=== PATIENT | male | born 1940 | race Caucasian/White ===

== ENCOUNTER 2022-02-14 12:45 | Emergency (ER) | payer BC, SELFPAY ==
[2022-02-14 12:50] VITALS: BP 146/88; PULSE 50; RESP 16; TEMP 36.4; O2SAT 99
--- NOTE | 2022-02-14 12:51 | ED.ALLEREA ---
HPI - Allergic Reaction General Chief complaint: Allergic Reaction Stated complaint: Alergic reaction to Valacyclovir Time Seen by Provider: 02/14/22 13:20 Source: patient Mode of arrival: ambulatory Limitations: no limitations History of Present Illness HPI narrative: 81-year-old male presents with concern for possible allergic reaction. Reports he called into his doctor to report white spots he had on the inside of his lip after taking a round of antibiotics. They prescribed him valacyclovir over the phone. He reports he started taking the valacyclovir last night and woke up this morning with itchy rash in his groin and under his arms. He reports later in the morning he noticed hoarse voice and his throat feeling itchy with some salty swallowing. He reports he took a Benadryl with some relief of the difficulty swallowing and itchy throat. He denies any current shortness of breath, swollen lips or swollen tongue, itchy throat. He denies any known history of allergies to valacyclovir MD complaint: allergic reaction Related Data Home Medications Medication Instructions Recorded Confirmed Livalo 4 mg DAILY 02/14/22 02/14/22 aspirin 325 mg PO DAILY 02/14/22 02/14/22 coenzyme Q10 [CoQ-10] 100 mg PO DAILY 02/14/22 02/14/22 glucosamine HCl 1,500 mg PO BID 02/14/22 02/14/22 losartan 50 mg PO BID 02/14/22 02/14/22 omeprazole 40 mg PO QPM 02/14/22 02/14/22 tamsulosin 0.4 mg PO QPM 02/14/22 02/14/22 Allergies Allergy/AdvReac Type Severity Reaction Status Date / Time valacyclovir Allergy Intermediate Rash, Verified 02/14/22 13:39 trouble swallowing rosuvastatin Allergy Unknown Unknown Verified 02/14/22 13:07 simvastatin Allergy Unknown Unknown Verified 02/14/22 13:07 Review of Systems Review of Systems: CONSTITUTIONAL: Denies malaise, chills, sweats, or fever. ENT: Reports itchy throat, trouble swallowing this morning CARDIOVASCULAR: Denies chest pain, palpitations, or edema. RESPIRATORY: Denies cough or dyspnea. GASTROINTESTINAL: Denies abdominal pain, nausea, vomiting, diarrhea SKIN: Reports itchy rash under both arms and in each groin All systems reviewed & are unremarkable except as noted in HPI and below PMFSH Family History Family History (System 12/14/21 @ 09:27 by Jonny Lee) Sibling Patient's sister is in good health Patient's brother is in good health Patient's sister is Father Acute myocardial infarction, Onset Age: 62 Patient's father is Social History Social History (System 10/31/21 @ 09:27 by Jonny Lee) Alcohol intake: current Comments At time of signature, agree with nursing past medical, surgical, social and family history. There is no relevant family history pertinent to the presenting complaint Exam Narrative: GENERAL: Well-appearing, well-nourished, and in no acute distress. HEAD: Normocephalic, atraumatic. EYES: PERRLA, conjunctivae clear, and EOMI. ENT: Mucous membranes moist. Oropharynx without edema, erythema. No lip edema, no oral lesions noted NECK: Supple. No lymphadenopathy CHEST: Clear to auscultation, breath sounds equal. No respiratory distress. HEART: Regular rate and rhythm. SKIN: Warm, dry. Discrete erythematous wheals consistent with hives noted to bilateral groin, axilla NEURO: Alert and oriented x3. PSYCH: Normal mood and affect Course Course Emergency Course: Patient is aware of diagnosis, understands and agrees to treatment plan. Anticipatory guidance given. Patient agrees to follow-up as directed and is aware of reasons to seek care at the emergency department. Portions of this record may have been created with voice recognition software Level of Care: Express Care Visit Vital Signs Vital signs: Reviewed. MDM - Allergic Reaction MDM Narrative Medical decision making narrative: No soft palate or uvula edema, no tongue or lip edema or other mucosal involvement, no respiratory compromise, no stridor, no whee
[2022-02-14] MEDS: methylPREDNISolone SOD SUCC 125 MG VIAL IM (13:45)
== END 2022-02-14 14:00 | disposition home or self-care (01) ==
PROVIDERS: Emergency Provider Nurse Practitioner; PCP Internal Medicine
DX: R21 Rash and other nonspecific skin eruption (principal); T78.40XA Allergy, unspecified, initial encounter; Z79.82 Long term (current) use of aspirin
CPT/HCPCS: 96372; 99203; G0463; J2930